=== PATIENT | female | born 1945 | race Caucasian/White ===

== ENCOUNTER 2018-09-18 11:35 | Inpatient (IN) | payer MEDICARE ==
[~2018-09-18] VITALS: Ht 165.1 cm; Wt 120.7 kg
[2018-09-18 12:50] LABS: CLARITY,URINE CLOUDY (CLEAR); COLOR,URINE AMBER (YELLOW)
[2018-09-18 12:51] LABS: BILIRUBIN,URINE 1+ (NEGATIVE); KETONES,URINE NEGATIVE (NEGATIVE); LEUKOCYTE ESTERASE ,URINE 2+ (NEGATIVE); NITRITE,URINE NEGATIVE (NEGATIVE); PROTEIN,URINE DIPSTICK 1+ (NEGATIVE); URINE UROBILINOGEN 4 mg/dL (0.2 - 1)
[2018-09-18 12:56] LABS: BASOPHILS % 0.4 % (0.0-1.0); EOSINOPHILS # (AUTO) 0.1 (0.0-0.4); EOSINOPHILS % 0.7 % (0.0-6.0); HEMATOCRIT 30.7 % (34.2-44.1); LYMPHOCYTES # (AUTO) 0.6 (1.0-3.2); LYMPHOCYTES % 7.9 % (18.0-39.1); MEAN CORPUSCULAR HGB CONC 32.6 g/dL (31-35); MEAN CORPUSCULAR VOLUME 104.4 fL (81-99); MONOCYTES # (AUTO) 0.6 (0.2-0.8); MONOCYTES % 8.5 % (4.4-11.3); NEUTROPHILS % 81.7 % (38.7-80.0); PLATELET COUNT 124 x10e3/uL (140-360); RED BLOOD COUNT 2.94 x10e6/uL (3.6-5.1); RED CELL DISTRIBUTION WIDTH 16.7 % (11.7-14.4)
[2018-09-18 13:02] LABS: INR 1.23; PROTHROMBIN TIME 16.6 seconds (11.9-14.5)
[2018-09-18 13:03] LABS: PARTIAL THROMBOPLASTIN TIME 31.9 seconds (23.8-35.5)
[2018-09-18 13:04] LABS: BACTERIA,URINE MANY /HPF; RBC,URINE 21-50 /HPF (0-5); WBC,URINE (MAN) 21-50 /HPF (0-5)
[2018-09-18 13:11] LABS: ALBUMIN 2.1 g/dL (3.5-5.0); ALBUMIN/GLOBULIN RATIO 0.3 (0.8-2.0); ANION GAP 12.8 mmol/L (8-16); CREATININE, SERUM 1.38 mg/dL (0.57-1.11)
[2018-09-18 13:13] LABS: POTASSIUM 2.8 mmol/L (3.5-5.1)
[2018-09-18 13:31] LABS: THYROID STIMULATING HORMONE 9.199 uIU/mL (0.350-4.940)
[2018-09-18] MEDS ORDERED: CEFTRIAXONE SOD 1 GM VIAL IV ONE (13:45)
[2018-09-18] MEDS ORDERED: POTASSIUM CHLORIDE 20 MEQ TAB CR PO ONE (14:00)
--- NOTE | 2018-09-18 14:33 | Diagnostic Imaging Report ---
EXAM: CT Abdomen and Pelvis WITHOUT contrast INDICATION: Rule out RUQ mass COMPARISON: None. TECHNIQUE: Abdomen and pelvis were scanned utilizing a multidetector helical scanner from the lung base to the pubic symphysis without administration of IV contrast. Absence of intravenous contrast decreases sensitivity for detection of focal lesions and vascular pathology. Coronal and sagittal reformations were obtained. Routine protocol was performed. IV CONTRAST: None. ORAL CONTRAST: None. RADIATION DOSE: Total DLP: 940 mGy*cm Estimated effective dose: (DLP x 0.015 x size factor) mSv COMPLICATIONS: None FINDINGS: LINES and TUBES: None. LOWER THORAX: Trace right pleural effusion. Patchy dependent atelectasis. Scattered coronary atherosclerosis. HEPATOBILIARY: Cirrhotic morphology to the liver. No focal hepatic lesions. No biliary ductal dilation. Cholelithiasis. SPLEEN: No splenomegaly. PANCREAS: Limited evaluation in the absence of IV contrast. No focal abnormality is noted. ADRENALS: No adrenal nodules KIDNEYS/URETERS: No hydronephrosis. No cystic or solid mass lesions. Several punctate 1-2 mm left mid pole and lower pole renal stones. GI TRACT: Large hiatal hernia. There is water density fluid along the left lateral aspect of the GE junction in the lower thorax. Mild diffuse thickening of the ascending and transverse colon. No evidence of bowel obstruction. Limited evaluation in the absence of IV and oral contrast. PELVIC ORGANS/BLADDER: Limited evaluation in the absence of contrast, but appears unremarkable. LYMPH NODES: No lymphadenopathy. VESSELS: Atherosclerotic calcifications of the abdominal aorta and branch vessels. PERITONEUM / RETROPERITONEUM: Large volume ascites. No free air. BONES: No acute bony findings. Degenerative changes of the visualized spine, most pronounced at L5-S1. SOFT TISSUES: There is diffuse anasarca, including involving the anterior abdominal wall and back. IMPRESSION: No specific evidence of mass on this non-contrast study. Cirrhotic morphology to the liver with large volume ascites, diffuse anasarca, and trace right pleural effusion. Mild diffuse wall thickening of the ascending and transverse colon, incompletely evaluated in the absence of IV and oral contrast, but may reflect volume overload. Water density fluid along the left lateral aspect of the GE junction in the lower thorax, likely reflecting ascites. An enteric cyst is also possible but less likely. Signed by: Dr. Aileen Lehman MD on 09/18/2018 2:29 PM
--- NOTE | 2018-09-18 14:52 | Diagnostic Imaging Report ---
EXAMINATION: CHEST SINGLE (PORTABLE) INDICATION: Dyspnea COMPARISON: Same day CT Abdomen/Pelvis 09/18/18 FINDINGS: TUBES and LINES: None. LUNGS: Low lung volumes. There is no evidence of pneumonia or pulmonary edema. PLEURA: Small right sided pleural effusion from same day abdominal CT is not well seen by radiograph. No evidence of pneumothorax. HEART AND MEDIASTINUM: The cardiomediastinal silhouette is unremarkable. BONES AND SOFT TISSUES: No acute osseous lesion. Soft tissues are unremarkable. UPPER ABDOMEN: No free air under the diaphragm. IMPRESSION: No acute radiographic abnormality. Small right sided pleural effusion from same day abdominal CT is not well seen by radiograph. Signed by: Dr. Aileen Lehman MD on 09/18/2018 2:49 PM
[2018-09-18] MEDS ORDERED: IBUPROFEN 200 MG TAB PO ONE (15:45)
[2018-09-18] MEDS ORDERED: IBUPROFEN 400 MG TAB PO ONE (15:45)
[2018-09-18] MEDS ORDERED: MORPHINE SULFATE 2 MG/ML SYR IV PRN (16:15)
[2018-09-18] MEDS ORDERED: SODIUM CHLORIDE FLUSH 10 ML SYR INJ PRN (16:15)
[2018-09-18] MEDS ORDERED: CEFTRIAXONE SOD 1 GM VIAL IV SCH (16:15)
[2018-09-18] MEDS ORDERED: MORPHINE SULFATE INJ 4 MG/ML INJ IV PRN (16:30)
--- OUTSIDE RECORDS SUMMARY | 2018-09-18 16:31 | XMS REPORT ---
Author Author [facility] Address Unknown Phone Unavailable Care Team Providers Care Guest Services Assistant Name Role Phone Asad PRESCOTT Unavailable Unavailable Problems This patient has no known problems. Allergies, Adverse Reactions, Alerts This patient has no known allergies or adverse reactions. Medications This patient has no known medications. Results Test Description Test Time Test Comments Text Results Atomic Results Result Comments CHEST SINGLE (PORTABLE) 2018-09-18 14:46:00 [place] [address] Patient Name: CLARISA BRASHER MR #: [id number] : 1945 Age/Sex: 73/F Req #: [id number] Adm Physician: Ordered by: TOPHER PRESCOTT MD Report #: [id number] Location: ER Room/Bed: Procedure: [id number] DX/CHEST SINGLE (PORTABLE) Exam Date: 09/18/18 Exam Time: 1405 REPORT STATUS: Signed EXAMINATION: CHEST SINGLE (PORTABLE) IN DICATION: Dyspnea COMPARISON: Same day CT Abdomen/Pelvis 09/18/18 FINDINGS: TUBES and LINES: None. LUNGS: Low lung volumes. There is no evidence of pneumonia or pulmonary edema. PLEURA: Small right sided pleural effusion from same day abdominal CT is not well seen by radiograph. No evidence of pneumothorax. HEART AND MEDIASTINUM: The cardiomediastinal silhouette is unremarkable. BONES AND SOFT TISSUES: No acute osseous lesion. Soft tissues are unremarkable. UPPER ABDOMEN: No free air under the diaphragm. IMPRESSION: No acute radiographic abnormality. Small right sided pleural effusion from same day abdominal CT is not well seen by radiograph. Signed by: Dr. Madie Reilly MD on 09/18/2018 2:49 PM Dictated By: MADIE REILLY MD 48 Transcribed By: ANGELIC on 09/18/181448 COPY TO: TOPHER PRESCOTT MD CT ABDOMEN/PELVIS WO 2018-09-18 14:16:00 [place] [address] Patient Name: CLARISA BRASHER MR #: [id number] : 1945 Age/Sex: 73/F Req #: [id number] Adm Physician: Ordered by: TOPHER PRESCOTT MD Report #: [id number] Location: ER Room/Bed: Procedure: [id number] CT/CT ABDOMEN/PELVIS WO Exam Date: 09/18/18 Exam Time: 1340 REPORT STATUS: Signed EXAM: CT Abdomen and Pelvis WITHOUT contrast IND ICATION: Rule out RUQ mass COMPARISON: None. TECHNIQUE: Abdomen and pelvis were scanned utilizing a multidetector helical scanner from the lung base to the pubic symphysis without administration of IV contrast. Absence of intravenous contrast decreases sensitivity for detection of focal lesions and vascular pathology. Coronal and sagittal reformations were obtained. Routine protocol was performed. IV CONTRAST: None. ORAL CONTRAST: None. RADIATION DOSE: Total DLP: 940 mGy*cm Estimated effective dose: (DLP x 0.015 x size factor) mSv COMPLICATIONS: None FINDINGS: LINES and TUBES: None. LOWER THORAX: Trace right pleural effusion. Patchy dependent atelectasis. Scattered coronary atherosclerosis. HEPATOBILIARY: Cirrhotic morphology to the liver. No focal hepatic lesions. No biliary ductal dilation. Cholelithiasis. SPLEEN: No splenomegaly. PANCREAS: Limited evaluation in the absence of IV contrast. No focal abnormality is noted. ADRENALS: No adrenal nodules KIDNEYS/URETERS: No hydronephrosis. No cystic or solid mass lesions. Several punctate 1-2 mm left mid pole and lower pole renal stones. GI TRACT: Large hiatal hernia. There is water density fluid along the left lateral aspect of the GE junction in the lower thorax. Mild diffuse thickening of the ascending and transverse colon. No evidence of bowel obstruction. Limited evaluation in the absence of IV and oral contrast. PELVIC ORGANS/BLADDER: Limited evaluation in the absence of contrast, but appears unremarkable. LYMPH NODES: No lymphadenopathy. VESSELS: Atherosclerotic calcifications of the abdominal aorta and branch vessels. PERITONEUM / RETROPERITONEUM: Large volume ascites. No free air. BONES: No acute bony findings. Degenerative changes of the visualized spine, most pronounced at L5-S1. SOFT TISSUES: There is diffuse anasarca, including involving the anterior abdominal wall and back. IMPRESSION: No specific evidence of mass on this non-contrast study. Cirrhotic morphology to the liver with large volume ascites, diffuse anasarca, and trace right pleural effusion. Mild diffuse wall thickening of the ascending and transverse colon, incompletely evaluated in the absence of IV and oral contrast, but may reflect volume overload. Water density fluid along the left lateral aspect of the GE junction in the lower thorax, likely reflecting ascites. An enteric cyst is also possible but less likely. Signed by: Dr. Madie Reilly MD on 09/18/2018 2:29 PM Dictated By: MADIE REILLY MD 142 Transcribed By: ANGELIC on 09/18/18 142 COPY TO: TOPHER PRESCOTT MD
[2018-09-18] MEDS: POTASSIUM CHLORIDE 20 MEQ TAB CR PO SCH (17:00)
[2018-09-18 17:07] LABS: FREE THYROXINE INDEX 2.1167 (1.4-3.8)
[2018-09-18 20:54] VITALS: BP 140/67
[2018-09-18 21:00] VITALS: BP 140/67
[2018-09-18] MEDS: FUROSEMIDE INJ 10 MG/ML 4 ML VIAL IV SCH (23:01)
[2018-09-19] VITALS (7 sets, daily range): BP systolic 101–135; BP diastolic 55–68
[2018-09-19] MEDS: LEVOTHYROXINE SODIUM 25 MCG TABLET PO SCH (05:11)
[2018-09-19 05:37] LABS: BASOPHILS % 0.5 % (0.0-1.0); EOSINOPHILS # (AUTO) 0.1 (0.0-0.4); EOSINOPHILS % 2.2 % (0.0-6.0); HEMOGLOBIN 8.9 g/dL (12.0-16.0); LYMPHOCYTES # (AUTO) 1.3 (1.0-3.2); LYMPHOCYTES % 23.9 % (18.0-39.1); MEAN CORPUSCULAR HEMOGLOBIN 33.7 pg (28-32); MEAN CORPUSCULAR VOLUME 102.3 fL (81-99); MONOCYTES # (AUTO) 0.7 (0.2-0.8); MONOCYTES % 12.6 % (4.4-11.3); NEUTROPHILS # (AUTO) 3.4 (2.1-6.9); NEUTROPHILS % 60.3 % (38.7-80.0); PLATELET COUNT 106 x10e3/uL (140-360); RED BLOOD COUNT 2.64 x10e6/uL (3.6-5.1); RED CELL DISTRIBUTION WIDTH 16.4 % (11.7-14.4)
[2018-09-19 05:47] LABS: ANION GAP 10.2 mmol/L (8-16); CALCIUM 8.4 mg/dL (8.4-10.2); CREATININE, SERUM 1.41 mg/dL (0.57-1.11); POTASSIUM 3.2 mmol/L (3.5-5.1)
[2018-09-19 06:34] LABS: CHOL/HDL RATIO 8.9 (3.0-3.6)
[2018-09-19 07:32] LABS: % IRON SATURATION 36 % (15-50); IRON 62 ug/dL (50-170); TOTAL IRON BINDING CAPACITY 171 ug/dL (261-478); TRANSFERRIN 122 mg/dL (180-382)
[2018-09-19] MEDS: FUROSEMIDE INJ 10 MG/ML 4 ML VIAL IV SCH ×2 (09:00→16:52)
[2018-09-19] MEDS: PROPRANOLOL HCL 60 MG ER CAP PO SCH (09:00)
[2018-09-19] MEDS: POTASSIUM CHLORIDE 20 MEQ TAB CR PO SCH ×2 (09:00→16:52)
[2018-09-19] MEDS: SPIRONOLACTONE 25 MG TAB PO SCH (09:00)
[2018-09-19] MEDS: CEFTRIAXONE SOD 1 GM VIAL IV SCH (16:52)
[2018-09-19] MEDS ORDERED: SODIUM CHLORIDE 0.9% 50ML 50 ML ONE (16:55)
[2018-09-19] MEDS ORDERED: SODIUM CHLORIDE 0.9% 250ML 250 ML ONE (16:56)
[2018-09-19] MEDS ORDERED: TRAMADOL HCL 50 MG TAB PO PRN (18:45)
[2018-09-20] VITALS (7 sets, daily range): BP systolic 93–145; BP diastolic 53–70
[2018-09-20 05:37] LABS: BASOPHILS % 0.6 % (0.0-1.0); EOSINOPHILS # (AUTO) 0.2 (0.0-0.4); EOSINOPHILS % 3.1 % (0.0-6.0); HEMATOCRIT 29.3 % (34.2-44.1); HEMOGLOBIN 9.5 g/dL (12.0-16.0); LYMPHOCYTES # (AUTO) 1.9 (1.0-3.2); LYMPHOCYTES % 29.6 % (18.0-39.1); MEAN CORPUSCULAR HEMOGLOBIN 33.8 pg (28-32); MEAN CORPUSCULAR HGB CONC 32.4 g/dL (31-35); MEAN CORPUSCULAR VOLUME 104.3 fL (81-99); MONOCYTES # (AUTO) 0.8 (0.2-0.8); MONOCYTES % 11.8 % (4.4-11.3); NEUTROPHILS # (AUTO) 3.4 (2.1-6.9); NEUTROPHILS % 54.1 % (38.7-80.0); PLATELET COUNT 118 x10e3/uL (140-360); RED BLOOD COUNT 2.81 x10e6/uL (3.6-5.1); RED CELL DISTRIBUTION WIDTH 16.7 % (11.7-14.4)
[2018-09-20 05:52] LABS: ALBUMIN 1.7 g/dL (3.5-5.0); ALBUMIN/GLOBULIN RATIO 0.3 (0.8-2.0); ANION GAP 8.4 mmol/L (8-16); CALCIUM 8.4 mg/dL (8.4-10.2); CREATININE, SERUM 1.48 mg/dL (0.57-1.11); MAGNESIUM 1.7 MG/DL (1.3-2.1); POTASSIUM 3.4 mmol/L (3.5-5.1)
[2018-09-20] MEDS: FUROSEMIDE INJ 10 MG/ML 4 ML VIAL IV SCH ×2 (06:00→17:06)
[2018-09-20] MEDS: LEVOTHYROXINE SODIUM 25 MCG TABLET PO SCH (06:00)
[2018-09-20] MEDS: PROPRANOLOL HCL 60 MG ER CAP PO SCH (09:00)
[2018-09-20] MEDS ORDERED: ALBUMIN 25% 25GM 0.25 GM/ML BTL IV ONE (11:00)
[2018-09-20] MEDS: POTASSIUM CHLORIDE 20 MEQ TAB CR PO SCH ×2 (11:04→16:52)
[2018-09-20] MEDS: SPIRONOLACTONE 25 MG TAB PO SCH (11:04)
[2018-09-20] MEDS: ACETAMINOPHEN 325 MG TAB PO PRN (11:05)
--- NOTE | 2018-09-20 11:17 | Diagnostic Imaging Report ---
PROCEDURE:US GUIDED PARACENTESIS COMPARISON:[facility], CT, CT ABDOMEN/PELVIS WO, 09/18/2018, 13:54. INDICATIONS:ASCITES FINDINGS:Large volume ascites is noted in all 4 quadrants of the abdomen. Following informed consent appropriate window in the right mid abdomen was prepped and draped in the usual fashion. 1% lidocaine was utilized for local anesthesia. An 8 Taj[place] TPK catheter was advanced into the ascites with ultrasound guidance. A total of 9,950 cc's of ascitic fluid was withdrawn. Patient tolerated procedure well. Specimen was sent to the laboratory for analysis. Order was placed in the chart for post paracentesis administration of 50 g of albumin. CONCLUSION:Successful ultrasound guided large volume paracentesis. Rex Priest D.O. Dictated by: Rex Priest D.O. on 09/20/2018 at 11:26 Electronically approved by: Rex Priest D.O. on 09/20/2018 at 11:26
--- NOTE | 2018-09-20 12:33 | Diagnostic Imaging Report ---
EXAM: Renal Ultrasound INDICATION: ^ckd ^[id number] ^[id number] COMPARISON: CT abdomen and pelvis without contrast 09/18/2018 TECHNIQUE: Transverse and longitudinal images of the kidneys and bladder were obtained. FINDINGS: Right Kidney: Size: 8.9 cm, right renal cortex 1.0 cm. Appearance: Increased echogenicity. Collecting system: No hydronephrosis Stones: None Cyst/Mass: None Left Kidney: Size: 9.9 cm, left renal cortex 1.0 cm. Appearance: Increased echogenicity. Collecting system: No hydronephrosis Stones: None Cyst/Mass: None Bladder: No focal lesions. No wall thickening. Incidental note is made of small amount of perihepatic ascites. IMPRESSION: 1. Bilateral increased renal cortical echogenicity, consistent with medical renal disease. Bilateral renal cortical thinning. No hydronephrosis or obstruction. Signed by: Dr. Richy Prado M.D. on 09/20/2018 12:29 PM
[2018-09-20 12:55] LABS: BODY FLUID TYPE ASCITES
[2018-09-20 12:56] LABS: BODY FLUID APPEARANCE SL.CLOUDY; BODY FLUID COLOR YELLOW
[2018-09-20 13:01] LABS: RBC,BODY FLUID 234 cells/uL; WBC,BODY FLUID 145 cells/uL
[2018-09-20 13:11] LABS: LYMPHOCYTES,BODY FLUID 17 %; MONO/MACROPHG,BODY FLUID 52 %; NEUTROPHILS,BODY FLUID 31 %
[2018-09-20] MEDS ORDERED: SODIUM CHLORIDE 0.9% 50ML 50 ML ONE ×2 (13:59→16:15)
[2018-09-20] MEDS: MEROPENEM 1 GM VIAL IV SCH ×2 (13:59→21:38)
[2018-09-20] MEDS ORDERED: MEROPENEM 1GRAM 1 GM in SODIUM CHLORIDE 0.9% 100 ML 100 ML IV SCH (14:00)
[2018-09-20] MEDS: CEFTRIAXONE SOD 1 GM VIAL IV SCH (16:14)
--- NOTE | 2018-09-20 17:39 | Consultation ---
DATE OF CONSULTATION: REQUESTING PHYSICIAN: Dr. Aram Goff. REASON FOR CONSULTATION: Elevated creatinine. HISTORY OF PRESENT ILLNESS: Thank you for allowing us to participate in Ms. Reilly's care. This is a 73-year-old female with no prior medical history, apparently started off with what appears to be cirrhosis at this point cryptogenic, but there is a family history of fatty liver in her grandchildren who are in their 20s. She has worsening swelling. No hydronephrosis on the CAT scan and increasing abdominal distension. To her knowledge, she has never had a history of hypertension or diabetes. She has had trouble with being overweight in the past. Denies any chronic NSAID use. PAST MEDICAL HISTORY: According to her, no prior medical illness. FAMILY HISTORY: Cirrhosis in grandchildren. SOCIAL HISTORY: Denies alcohol use. meDICATION PLS SEE LIST, INCLUDES IV LASIX REVIEW OF SYSTEMS CONSTITUTIONAL: Feels weak. PSYCH: Feels anxious. GI: Abdominal distension. CARDIAC: Leg swelling. Some dyspnea. NEURO: Denies headache or seizures. RESPIRATORY: Negative. PHYSICAL EXAMINATION GENERAL: Lying in bed, no distress, appears anxious. VITAL SIGNS: Temperature 96.6, pulse 64, blood pressure 118/61. HEENT: Atraumatic. NECK: Thick. CHEST: Clear. Diminished breath sound at the right base. CARDIAC: Normal heart tones. Rhythm sounds regular. ABDOMEN: Distended. EXTREMITIES: 1 to 2+ edema. NEURO: Appears to be alert and appropriate. Speech is normal. There is no asterixis. LABORATORY DATA: UA shows evidence of urine infection, no casts were reported. Many bacteria on the smear as well as pyuria and hematuria. Creatinine is up to 1.48 with diuresis, BUN 17, K is 3.4, sodium is adequate at 137. Hemoglobin is 9.5. INR is 1.23. Serology is pending for the liver disease as well as hepatitis studies. ASSESSMENT 1. Acute kidney injury, unknown if there is any chronic disease. Fluid overload, the acute injury is likely from decreased renal perfusion in the presence of cirrhosis. 2. Mild hypokalemia secondary to diuretics. She has been started on Aldactone. Potassium is coming up. 3. Hypoalbuminemia, which may be contributing to worsening swelling. PLAN: From a renal standpoint, may need to keep the fluid overload controlled. Long time spent counseling to keep salt and water restricted. Check daily weights. I do not think there is any obstruction component. Treatment of the urinary tract infection is ongoing with ceftriaxone. Avoid NSAIDs and other nephrotoxins. We will follow along. Job#: [id number] STEVE SOMMRE
[2018-09-20 21:53] LABS: FOLATE 5.3 ng/mL (7.0-15.4)
[2018-09-21] VITALS (8 sets, daily range): BP systolic 87–168; BP diastolic 45–96
[2018-09-21] MEDS: FUROSEMIDE INJ 10 MG/ML 4 ML VIAL IV SCH ×2 (05:16→16:52)
[2018-09-21] MEDS: MEROPENEM 1 GM VIAL IV SCH ×3 (05:16→21:55)
[2018-09-21] MEDS: LEVOTHYROXINE SODIUM 25 MCG TABLET PO SCH (05:16)
[2018-09-21 07:05] LABS: ANION GAP 9.3 mmol/L (8-16); CALCIUM 8.3 mg/dL (8.4-10.2); CREATININE, SERUM 1.42 mg/dL (0.57-1.11); PHOSPHORUS 3.1 MG/DL (2.3-4.7); POTASSIUM 3.3 mmol/L (3.5-5.1)
[2018-09-21] MEDS: POTASSIUM CHLORIDE 20 MEQ TAB CR PO SCH ×2 (08:21→16:52)
[2018-09-21] MEDS: SPIRONOLACTONE 25 MG TAB PO SCH (08:21)
[2018-09-21] MEDS: PROPRANOLOL HCL 60 MG ER CAP PO SCH (09:00)
[2018-09-21] MEDS ORDERED: SODIUM CHLORIDE 0.9% 50ML 50 ML ONE ×2 (14:06→21:53)
[2018-09-21] MEDS: CEFTRIAXONE SOD 1 GM VIAL IV SCH (16:51)
[2018-09-21] MEDS: ACETAMINOPHEN 325 MG TAB PO PRN (18:46)
[2018-09-22] VITALS (7 sets, daily range): BP systolic 96–119; BP diastolic 49–58
[2018-09-22] MEDS: MEROPENEM 1 GM VIAL IV SCH ×3 (05:56→21:02)
[2018-09-22] MEDS: FUROSEMIDE INJ 10 MG/ML 4 ML VIAL IV SCH (05:56)
[2018-09-22] MEDS: LEVOTHYROXINE SODIUM 25 MCG TABLET PO SCH (05:57)
[2018-09-22 06:33] LABS: ANION GAP 9.7 mmol/L (8-16); CALCIUM 8.3 mg/dL (8.4-10.2); CREATININE, SERUM 1.28 mg/dL (0.57-1.11); POTASSIUM 3.7 mmol/L (3.5-5.1)
[2018-09-22] MEDS: PROPRANOLOL HCL 60 MG ER CAP PO SCH (09:00)
[2018-09-22] MEDS: SPIRONOLACTONE 25 MG TAB PO SCH (09:08)
[2018-09-22] MEDS: POTASSIUM CHLORIDE 20 MEQ TAB CR PO SCH ×2 (09:08→17:00)
[2018-09-22] MEDS: ONDANSETRON HCL INJ 2 MG/ML VIAL IV PRN (10:08)
[2018-09-22] MEDS: ACETAMINOPHEN 325 MG TAB PO PRN (10:08)
[2018-09-22] MEDS ORDERED: ALBUMIN 25% 25GM 0.25 GM/ML BTL IV SCH (14:00)
[2018-09-22] MEDS: ALBUMIN 25% 25GM 0.25 GM/ML BTL IV SCH ×2 (14:30→21:02)
[2018-09-22] MEDS: BUMETANIDE INJ 0.25MG/ML 4ML VIAL IV SCH ×2 (14:30→21:02)
[2018-09-22 22:28] LABS: ALPHA-1-ANTITRYPSIN 113 mg/dL (90-200)
[2018-09-23] VITALS (7 sets, daily range): BP systolic 99–123; BP diastolic 46–58
[2018-09-23] MEDS: LEVOTHYROXINE SODIUM 25 MCG TABLET PO SCH (05:12)
[2018-09-23] MEDS: ALBUMIN 25% 25GM 0.25 GM/ML BTL IV SCH (05:12)
[2018-09-23] MEDS: BUMETANIDE INJ 0.25MG/ML 4ML VIAL IV SCH (05:12)
[2018-09-23] MEDS: MEROPENEM 1 GM VIAL IV SCH ×2 (05:12→14:00)
[2018-09-23 06:40] LABS: BASOPHILS % 0.8 % (0.0-1.0); EOSINOPHILS # (AUTO) 0.1 (0.0-0.4); EOSINOPHILS % 2.5 % (0.0-6.0); HEMATOCRIT 27.2 % (34.2-44.1); HEMOGLOBIN 8.7 g/dL (12.0-16.0); LYMPHOCYTES # (AUTO) 1.4 (1.0-3.2); MEAN CORPUSCULAR HEMOGLOBIN 33.5 pg (28-32); MEAN CORPUSCULAR VOLUME 104.6 fL (81-99); MONOCYTES # (AUTO) 0.6 (0.2-0.8); MONOCYTES % 13.3 % (4.4-11.3); NEUTROPHILS # (AUTO) 2.6 (2.1-6.9); NEUTROPHILS % 53.8 % (38.7-80.0); PLATELET COUNT 99 x10e3/uL (140-360); RED CELL DISTRIBUTION WIDTH 16.8 % (11.7-14.4)
[2018-09-23 06:59] LABS: ANION GAP 10.6 mmol/L (8-16); CALCIUM 8.8 mg/dL (8.4-10.2); CREATININE, SERUM 1.29 mg/dL (0.57-1.11); POTASSIUM 3.6 mmol/L (3.5-5.1)
[2018-09-23] MEDS: PROPRANOLOL HCL 60 MG ER CAP PO SCH (09:00)
[2018-09-23] MEDS: SPIRONOLACTONE 25 MG TAB PO SCH (09:08)
[2018-09-23] MEDS: POTASSIUM CHLORIDE 20 MEQ TAB CR PO SCH (09:08)
[2018-09-23] MEDS: ONDANSETRON HCL INJ 2 MG/ML VIAL IV PRN (11:50)
[2018-09-23] MEDS ORDERED: METOLAZONE 5 MG TAB PO NR (15:15)
[2018-09-23] MEDS: FUROSEMIDE 40 MG TAB PO SCH (17:55)
[2018-09-23] MEDS ORDERED: TRIMETHOPRIM/SULFAMETHOXAZOLE 160-800 MG TAB PO SCH (18:00)
[2018-09-23] MEDS: TRIMETHOPRIM/SULFAMETHOXAZOLE 160-800 MG TAB PO SCH (20:16)
[2018-09-24] VITALS: BP 116/55
[2018-09-24 04:00] VITALS: BP 122/56
[2018-09-24] MEDS: FUROSEMIDE 40 MG TAB PO SCH (05:15)
[2018-09-24] MEDS: LEVOTHYROXINE SODIUM 25 MCG TABLET PO SCH (05:15)
[2018-09-24 08:00] VITALS: BP 112/58
[2018-09-24] MEDS: PROPRANOLOL HCL 60 MG ER CAP PO SCH (08:48)
[2018-09-24] MEDS: SPIRONOLACTONE 25 MG TAB PO SCH (08:48)
[2018-09-24] MEDS: TRIMETHOPRIM/SULFAMETHOXAZOLE 160-800 MG TAB PO SCH (08:48)
[2018-09-24 12:00] VITALS: BP 101/56
[2018-09-26 20:10] LABS: ALPHA 2 GLOBULIN URINE PEP 7.3 % (.)
--- NOTE | 2018-11-10 00:37 | Discharge Summary ---
HOSPITAL COURSE: This patient came in with cirrhosis of the liver, cryptogenic. Patient also had UTI with ESBL. We added Merrem to her regimen. Patient also had large-volume paracentesis. Serology results awaited. Dr. Adan Hall was consulted. Patient also had ascitic fluid for white count, C and S, Gram stain, and cytology. Patient's labs were essentially pointing towards hepatitis C. Patient also had a consult with nephrology for ruling out hepatorenal syndrome. CKD 3 was noted; however, patient continued to do better with large-volume paracentesis. Two of them were done. Decompensated cirrhosis of the liver secondary to hepatitis C was noted. Patient was then discharged home in a stable condition. Patient was asked to follow up with junior [facility] systems administrator [place]. Names were given to the patient and the patient will follow up with junior [employer] systems administrator. A consult with Dr. Arriaga [facility] was given also. FINAL DIAGNOSES 1. 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 2. Chronic kidney disease stage 3. 3. Urinary tract infection, extended-spectrum beta-lactamase. Patient was asked to follow up with me in about 1 week's time. For further information, look into the chart. For medicines on discharge, look into the medical reconciliation sheet. In addition, patient was discharged to SNF for debility . LOUIS FROST MD Job#: [id number]
== END 2018-09-24 14:32 | DRG 433 ==
LOC: ER 11:35 → ERHOLD 16:28 → MED/SURG3 20:36
PROVIDERS: ADMIT Family Medicine; ATTEND Family Medicine
DX: K74.69 Other cirrhosis of liver (principal); N13.30 Unspecified hydronephrosis; N17.9 Acute kidney failure, unspecified; E87.6 Hypokalemia; T50.2X5A Adverse effect of carbonic-anhydrase inhibitors, benzothiadiazides and other diuretics, initial encounter; E88.09 Other disorders of plasma-protein metabolism, not elsewhere classified
CPT/HCPCS: 36415; 49083; 71045; 74176; 76770; 80048; 80053; 80061; 81001; 82040; 82103; 82105; 82140; 82390; 82607; 82746; 83540; 83735; 83880; 83970; 84100; 84165; 84166; 84436; 84443; 84466; 84479; 84550; 85025; 85610; 85730; 86039; 86255; 87070; 87086; 87186; 87205; 87521; 88112; 88305; 89051; 93005; 99284; J0696; J1940; J2185; J2270; J2405; J7050; P9047